=== PATIENT | female | born 1990 | race Asian ===

== ENCOUNTER → 2018-04-20 | Outpatient (CLI) | payer OTHER ==
[2018-04-22 14:12] LABS: D001-IgE D pteronyssinus <0.10 kU/L (Class 0); E001-IgE Cat Epith/Dander < 0.10 kU/L (Class 0); E005-IgE Dog Dander < 0.10 kU/L (Class 0); G002-IgE Bermuda Grass < 0.10 kU/L (Class 0); G008-IgE Kentucky Bluegrass < 0.10 kU/L (Class 0); M001-IgE Penicillium chrysogen < 0.10 kU/L (Class 0); M002 IgE Cladosporium herbaru < 0.10 kU/L (Class 0); M003 IgE Aspergillus fumigatu < 0.10 kU/L (Class 0); M006-IgE Alternaria alternata < 0.10 kU/L (Class 0); T001-IgE Maple/Box Elder < 0.10 kU/L (Class 0); T003-IgE Common Silver Birch 0.29 kU/L (Class 0/I); T006-IgE Cedar, Mountain < 0.10 kU/L (Class 0); T007-IgE Oak, White 1.34 kU/L (Class II); T008-IgE Elm, American < 0.10 kU/L (Class 0); T015-IgE Ash, White < 0.10 kU/L (Class 0); T041-IgE Hickory, White < 0.10 kU/L (Class 0); T070-IgE White Mulberry < 0.10 kU/L (Class 0); W001-IgE Ragweed, Short 1.94 kU/L (Class III); W009-IgE Plantain, English < 0.10 kU/L (Class 0); W014-IgE Pigweed, Rough < 0.10 kU/L (Class 0); W018-IgE Sheep Sorrel < 0.10 kU/L (Class 0)
== END ==
LOC: M LAB 10:33
DX: R06.7 Sneezing (principal); M75.41 Impingement syndrome of right shoulder
CPT/HCPCS: 73030

== ENCOUNTER → 2018-05-11 | Outpatient (REF) | payer OTHER | LOC: M LAB REF 13:57 | DX: Z12.4 Encounter for screening for malignant neoplasm of cervix (principal) | CPT/HCPCS: 88142 ==

== ENCOUNTER → 2020-08-02 | Outpatient (CLI) | payer OTHER ==
[2020-08-02 13:56] LABS: BASO % 0.4 % (0.0-1.0); EOS # 0.1 10^3/uL (0.0-0.5); EOS % 1.1 % (0.0-3.0); HEMOGLOBIN 13.6 g/dl (12.0-15.5); LYMPH # 2.1 10^3/uL (1.5-5.0); LYMPH % 25.8 % (24.0-44.0); MEAN CORPUSCULAR HEMOGLOBIN 30.8 pg (27.0-33.0); MEAN CORPUSCULAR HGB CONC 33.2 g/dl (32.0-36.5); MEAN CORPUSCULAR VOLUME 92.8 fl (80.0-96.0); MONO # 0.5 10^3/uL (0.0-0.8); MONO % 5.9 % (0.0-5.0); NEUTROPHILS # 5.3 10^3/uL (1.5-8.5); NEUTROPHILS % 66.4 % (36.0-66.0); PLATELET COUNT, AUTOMATED 259 10^3/uL (150-450); RED BLOOD COUNT 4.42 10^6/uL (4.00-5.40)
[2020-08-02 15:15] LABS: HEPATITIS C VIRUS ABY INDEX 0.1 INDEX (<0.8); HIV 1&2 SCREEN CENTAUR NEGATIVE (NEGATIVE)
== END ==
LOC: M PLALAB 10:52
PROVIDERS: ATTEND Obstetrics & Gynecology
DX: Z34.01 Encounter for supervision of normal first pregnancy, first trimester (principal); Z3A.00 Weeks of gestation of pregnancy not specified

== ENCOUNTER → 2020-09-12 | Outpatient (CLI) | payer OTHER | LOC: M PLALAB 11:36 | PROVIDERS: ATTEND Advanced Practice Midwife | DX: Z34.82 Encounter for supervision of other normal pregnancy, second trimester (principal) ==

== ENCOUNTER → 2020-11-22 | Outpatient (REF) | payer OTHER ==
[2020-11-22 13:55] LABS: HEMATOCRIT 33.3 % (36.0-47.0); HEMOGLOBIN 10.9 g/dl (12.0-15.5); MEAN CORPUSCULAR HEMOGLOBIN 30.6 pg (27.0-33.0); MEAN CORPUSCULAR HGB CONC 32.7 g/dl (32.0-36.5); MEAN CORPUSCULAR VOLUME 93.5 fl (80.0-96.0); PLATELET COUNT, AUTOMATED 226 10^3/uL (150-450); RED BLOOD COUNT 3.56 10^6/uL (4.00-5.40); WHITE BLOOD COUNT 8.5 10^3/uL (4.0-10.0)
== END ==
LOC: M PLALAB 10:37
PROVIDERS: ATTEND Obstetrics & Gynecology
DX: Z34.02 Encounter for supervision of normal first pregnancy, second trimester (principal)

== ENCOUNTER → 2020-11-29 | Outpatient (CLI) | payer OTHER | LOC: M LAB 08:07 | PROVIDERS: ATTEND Obstetrics & Gynecology | DX: O28.5 Abnormal chromosomal and genetic finding on antenatal screening of mother (principal); Z3A.00 Weeks of gestation of pregnancy not specified ==

== ENCOUNTER → 2020-12-06 | Outpatient (REF) | payer OTHER ==
[2020-12-07 09:58] LABS: APPEARANCE, URINE CLEAR (CLEAR); BACTERIA, URINE AUTO NEGATIVE (NEGATIVE); BILIRUBIN, URINE AUTO NEGATIVE (NEGATIVE); BLOOD, URINE BLOOD NEGATIVE (NEGATIVE); COLOR, URINE STRAW (YELLOW); GLUCOSE, URINE (UA) AUTO NEGATIVE (NEGATIVE); KETONE, URINE AUTO NEGATIVE (NEGATIVE); LEUKOCYTE ESTERASE, URINE AUTO NEGATIVE (NEGATIVE); NITRITE, URINE AUTO NEGATIVE (NEGATIVE); PROTEIN, URINE AUTO NEGATIVE (NEGATIVE); RBC, URINE AUTO 0 /HPF (0-3); SPECIFIC GRAVITY URINE AUTO 1.008 (1.002-1.035); SQUAMOUS EPITHELIAL CELL UR AU 0 /HPF (0-6); UROBILINOGEN, URINE AUTO 0.2 mg/dL (0.0-2.0); WBC, URINE AUTO 1 /HPF (0-3)
== END ==
LOC: M SFHCWAGY 09:34
PROVIDERS: ATTEND Advanced Practice Midwife
DX: O26.899 Other specified pregnancy related conditions, unspecified trimester (principal)

== ENCOUNTER → 2020-12-27 | Outpatient (CLI) | payer OTHER ==
--- NOTE | 2020-12-27 13:08 | REP ---
INDICATION: GROWTH. COMPARISON: None. TECHNIQUE: Transabdominal obstetric sonography. FINDINGS: Scanning through the gravid uterus demonstrates a viable single intrauterine gestation in cephalic lie. motion is observed and heart rate is recorded at 135 beats per minute. A anterior placenta is seen, grade 2, without evidence of placenta previa. Closed cervical length is measured at 3.4 cm transabdominally. No extrauterine abnormality is observed. Amniotic fluid is subjectively normal. JOSE MARIA is normal at 15.8 cm.. anatomic survey is not performed with this exam.. Biometry chart: BPD 7.8 cm 31 weeks 1 day Head circumference 27.6 cm, 30 weeks 1 day Abdominal circumference 25.9 cm, 30 weeks 0 days Femur length 5.9 cm, 30 weeks 5 days Humeral length 5.1 cm, 30 weeks 0 days HC AC ratio normal 1.07 Cephalic index normal 0.80 Estimated weight 1559 g, 3 lb 6 oz, 35th percentile for 30 weeks 3 days IMPRESSION: Viable single intrauterine gestation at 30 weeks 3 days by today's composite sonographic criteria. LOKESH by today's sonography 04 Mar 2021. No complication identified. Expected gestational age estimate for from previous LOKESH is also 30 weeks 3 days, known LOKESH March 04, 2021. <Electronically signed by Ananda Rich > 12/27/20 [id number]
== END ==
LOC: M WHC 09:51
PROVIDERS: ATTEND Obstetrics & Gynecology
DX: O24.419 Gestational diabetes mellitus in pregnancy, unspecified control (principal); Z3A.30 30 weeks gestation of pregnancy

== ENCOUNTER → 2021-01-08 | Outpatient (CLI) | payer OTHER | LOC: M WHC 15:55 | PROVIDERS: ATTEND Obstetrics & Gynecology | DX: Z53.29 Procedure and treatment not carried out because of patient's decision for other reasons (principal); O24.415 Gestational diabetes mellitus in pregnancy, controlled by oral hypoglycemic drugs ==

== ENCOUNTER → 2021-01-23 | Outpatient (CLI) | payer OTHER ==
--- NOTE | 2021-01-23 17:55 | REP ---
INDICATION: GROWTH. COMPARISON: 12/27/2020. TECHNIQUE: Real-time sonographic evaluation of the gravid uterus performed. FINDINGS: Estimated gestational age is34 weeks 2 days, EDC 03/04/2021. Today's measurements indicate appropriate growth. Presentation: Cephalic Placenta anterior, grade 2, without evidence of placenta previa. heart rate is recorded at 139 beats per minute. Amniotic fluid is subjectively normal. JOSE MARIA 12.2, normal range 8.0-24.8 Closed cervical length is measured at 3.1 cm. Biometry chart: BPD: 85 mm, 34 weeks 1 days, 48th percentile. HC: 301 mm, 33 weeks 3 days, 36th percentile AC: 291 mm, 33 weeks 1 days, 32nd percentile Femur length: 68 mm, 34 weeks 5 days, 56th percentile HC to AC ratio: 1.03, normal range 0.94-1.13. Estimated weight: 2253g, 28th percentile. IMPRESSION: Viable single intrauterine gestation as above. <Electronically signed by Jayro Lara > 01/23/21 [id number]
== END ==
LOC: M WHC 15:17
PROVIDERS: ATTEND Obstetrics & Gynecology
DX: O24.415 Gestational diabetes mellitus in pregnancy, controlled by oral hypoglycemic drugs (principal)

== ENCOUNTER → 2021-02-01 | Outpatient (REF) | payer OTHER | LOC: M SFHCWAGY 09:45 | PROVIDERS: ATTEND Advanced Practice Midwife | DX: Z36.89 Encounter for other specified antenatal screening (principal); Z3A.35 35 weeks gestation of pregnancy ==

== ENCOUNTER → 2021-02-05 | Outpatient (CLI) | payer OTHER ==
--- NOTE | 2021-02-06 10:36 | REP ---
INDICATION: GESTATIONAL DIABETES/GROWTH COMPARISON: 01/23/2021 TECHNIQUE: Transabdominal obstetrical ultrasound with color Doppler evaluation. FINDINGS: Examination demonstrates a single live intrauterine in cephalic presentation. motion is identified by technologist. Placenta is noted anterior and grade 2 without evidence for placenta previa or abruption. Amniotic fluid volume is normal. Cervix appears closed.. Gestational age by LMP and 1st U/S 36 weeks 1 day with LOKESH 03/04/2021. Gestational age by current measurements 34 weeks 5 days with LOKESH 03/14/2021. FHR equals 160 beats per minute. BPD: 8.8 cm at 35 weeks 4 days HC: 31.6 cm at 35 weeks 3 days AC: 29.0 cm at 33 weeks 0 days FL: 6.8 cm at 35 weeks 0 days HL: 5.9 cm at 34 weeks 3 days HC/AC: 1.09 Estimated weight 2348 grams (less than 3rdpercentile based on age by 1st ultrasound at 36 weeks 1 day). JOSE MARIA: 14.9 cm (7.7-24.8) IMPRESSION: Single live advanced gestation in cephalic presentation demonstrating less than expected interval growth. Correlation is recommended. No gross abnormalities are identified. <Electronically signed by Bernabe Zacarias > 02/06/21 [id number]
== END ==
LOC: M WHC 11:33
PROVIDERS: ATTEND Advanced Practice Midwife
DX: O24.419 Gestational diabetes mellitus in pregnancy, unspecified control (principal)

== ENCOUNTER → 2021-02-07 | Outpatient (CLI) | payer OTHER ==
[~2021-02-07] MED LIST: FERR325T3 PO; METF500T13 PO; PRENTAB9 PO
--- NOTE | 2021-02-07 10:58 | REP ---
INDICATION: IUGR, W/ CORD DOPPLER COMPARISON: 02/05/2021 TECHNIQUE: Transabdominal obstetrical ultrasound with color Doppler evaluation. FINDINGS: Examination demonstrates a single live intrauterine in cephalic presentation. motion is identified by technologist. Placenta is noted anterior/right lateral and grade 1 without evidence for placenta previa or abruption. Amniotic fluid volume is normal. Cervix appears closed.. Gestational age by LMP and 1st U/S 36 weeks 3 days with LOKESH 03/04/2021. FHR equals 144 beats per minute. JOSE MARIA: 12.9 cm Biophysical profile score: 8/8 Umbilical artery SD ratio: 2.50 (1.62-3.48) IMPRESSION: Single live advanced gestation in cephalic presentation. Biophysical profile score and amniotic fluid volume are normal. <Electronically signed by Bernabe Zacarias > 02/07/21 [id number]
== END ==
LOC: M RAD 10:13
PROVIDERS: ATTEND Advanced Practice Midwife
DX: O36.5930 Maternal care for other known or suspected poor fetal growth, third trimester, not applicable or unspecified (principal); Z3A.36 36 weeks gestation of pregnancy

== ENCOUNTER 2021-02-13 13:26 | Inpatient (IN) | payer OTHER ==
[~2021-02-13] VITALS: Ht 149.9 cm; Wt 68.8 kg
[2021-02-13] VITALS (9 sets, daily range): BP systolic 115–134; BP diastolic 62–84
--- NOTE | 2021-02-13 15:11 | HPEPDOC ---
Obstetrical History & Physical General Date of Admission Feb 13, 2021 at 13:26 History of Present Illness 30 yo at 37 2/7 weeks by LMP c/w 9 week ultrasound (EDC=03/04/2021) presents for induction due to severe IUGR. She does not feel any contractions. Good movement. Information Provided By: Patient Care Care: Good Care Dating Final EDC: March 04, 2021 Final EDC by: LMP, 1st trimester (US) Antepartum Course Diagnos(e)s 1. gestational diabetes on Metformin 2. NIPT testing with low fraction of cells, possible triploidy, no amniocentesis done. normal anatomy ultrasound Past Medical History Past Obstetrical History : Past Obstetrical History: Primgravida Past Medical History Medical History med hx: acne surgicall hx: none Family History Significant Family History: No pertinent family hx Social History Marital Status: Family situation: Spouse/partner home Psychosocial History: No pertinent psych hx * Smoker: non-smoker Physical Examination Physical Examination GENERAL: Alert and oriented times three. BREAST: . ABDOMEN: Gravid and non-tender to touch. FETUS: Is vertex (VTX) by sterile vaginal examination (SVE), fetus is vertex (VTX) by Matt. HEART RATE: Regular rate and rhythm. LUNGS: Clear to auscultation (CTA). EXTREMITIES: No edema. No clonus. Deep tendon reflexes (DTRs) + . Laboratory Data 24H LABS Laboratory Tests 2 02/13/21 13:59: Serology Scanned Report Hepatitis B Testing Pertinent Laboratoy Data Blood Type: B+ Group B Streptococcus: Negative Vaginal Examination Dilation: None Effacement: 50% Station: -2 Cervical Consistency: Medium Cervical Position: Posterior Assessment Variability: Moderate Accelerations: Positive Decelerations: None Tocometer Contractions: Yes Frequency: regular Duration: less than 60 seconds Strength: palpated as mild Assessment/Plan Assessment Pt is a 30-year-old (G)1 para (P)0 at 37+2 weeks by LMP c/w 9 week ultrasound presents for induction due to severe IUGR, class A2GDM. Plan Admit and orient. Quality Assurance Qa Lab Analyst and consent. Diet: regular. Group B Streptococcus (GBS) negative. Labs and intravenous (IV) per unit protocol. Anticipate [normal spontaneous delivery ()]. C-S as appropriate. ILDEFONSO MARTIN MD Feb 13, 2021 15:11
[2021-02-13] MEDS ORDERED: METF500T13 PO (15:20)
[2021-02-13] MEDS ORDERED: FERR325T3 PO (15:20)
[2021-02-13] MEDS ORDERED: PRENTAB9 PO (15:20)
[2021-02-13 15:25] LABS: HEMATOCRIT 40.7 % (36.0-47.0); HEMOGLOBIN 13.5 g/dl (12.0-15.5); MEAN CORPUSCULAR HEMOGLOBIN 31.2 pg (27.0-33.0); MEAN CORPUSCULAR HGB CONC 33.2 g/dl (32.0-36.5); PLATELET COUNT, AUTOMATED 182 10^3/uL (150-450); RED BLOOD COUNT 4.33 10^6/uL (4.00-5.40)
[2021-02-13] MEDS: miSOPROStol 50MCG 1/2 TABLET SL SCH ×3 (15:29→20:03)
[2021-02-13] MEDS ORDERED: metFORMIN (GLUCOPHAGE) 500MG TAB PO ONE (21:00)
[2021-02-13] MEDS ORDERED: LR 1,000 ML IV ONE (21:40)
[2021-02-14] VITALS (17 sets, daily range): BP systolic 107–139; BP diastolic 55–86
[2021-02-14] MEDS ORDERED: FENTANYL 2MCG/ML ROPIVACAINE 0.2% IN 0.9% NACL 100ML IVBAG As Ordered ONE (04:50)
[2021-02-14] MEDS ORDERED: LR 1,000 ML IV SCH ×2 (05:25→09:15)
[2021-02-14] MEDS ORDERED: ePHEDrine SULFATE 25 MG/5 ML(5MG/ML) SYRINGE IV PRN (05:50)
[2021-02-14] MEDS ORDERED: FENTANYL/ROPIVACAINE/NACL BAG 100 ML EPIDURAL SCH (05:50)
[2021-02-14] MEDS ORDERED: EPIDURAL COMMENT XX SCH (05:50)
[2021-02-14] MEDS ORDERED: REFRIGERATOR IV KEYS XX PRN (05:50)
[2021-02-14] MEDS ORDERED: LACTATED RINGER'S 1000 ML IV PRN (05:50)
[2021-02-14] MEDS ORDERED: EPIDURAL/PCA KEYS XX PRN (05:50)
[2021-02-14] MEDS ORDERED: diphenhydrAMINE 50MG/ML VIAL (J1200) IV PRN (05:50)
[2021-02-14] MEDS ORDERED: NALOXONE INJ 0.4MG/1ML VIAL (J2310 PER 1MG) IV PRN ×3 (05:50→17:30)
[2021-02-14] MEDS ORDERED: ONDANSETRON 4MG/2ML VIAL IV PRN ×4 (05:50→17:30)
[2021-02-14] MEDS ORDERED: OXYTOCIN DRIP 30 UNITS in IV 1 EA IV SCH ×2 (09:15→17:15)
[2021-02-14] MEDS ORDERED: LACTATED RINGER'S 1000 ML IV STA (14:44)
[2021-02-14] MEDS ORDERED: ceFAZolin SOD 2 GM in IV 1 EA IV ONE (14:45)
[2021-02-14] MEDS ORDERED: AZITHROMYCIN INJ 500 MG, VIAL MATE ADAPTER 1 EACH in NS 250 ML IV ONE (14:45)
[2021-02-14] MEDS ORDERED: BICITRA 30ML SOLN UDC PO ONE (14:45)
[2021-02-14] MEDS ORDERED: LIDOCAINE 2% W/EPINEPHRINE 20ML VIAL **PRES FREE As Ordered ONE (15:11)
[2021-02-14] MEDS ORDERED: OXYTOCIN INJ 10 UNITS/ML VIAL (J2590) As Ordered ONE ×2 (15:16→15:17)
[2021-02-14] MEDS ORDERED: ONDANSETRON 4MG/2ML VIAL As Ordered ONE (15:46)
[2021-02-14] MEDS ORDERED: MORPHINE PRES-FREE INJ 10 MG/10 ML VIAL (J2274) As Ordered ONE (15:46)
[2021-02-14] MEDS ORDERED: KETOROLAC 60MG 2ML VIAL As Ordered ONE (15:46)
[2021-02-14] MEDS ORDERED: MEPERIDINE 50 MG/ML 1ML VIAL (J2175) As Ordered ONE (15:54)
[2021-02-14 16:31] LABS: CORD GAS ABE A -3.1; CORD GAS HCO3 A 24.6 MEQ/L; CORD GAS O2 SAT A 68.2 %; CORD GAS PCO2 A 54.6 mmHg; CORD GAS PH A 7.271 UNITS; CORD GAS PO2 A 31.6 mmHg; CORD GAS SBC A 21.2 MEQ/L; CORD GAS TCO2 A 26.2 MEQ/L
[2021-02-14 16:33] LABS: CORD GAS ABE V -5.2; CORD GAS HCO3 V 20.2 MEQ/L; CORD GAS O2 SAT V 74.1 %; CORD GAS PCO2 V 39.1 mmHg; CORD GAS PH V 7.331 UNITS; CORD GAS PO2 V 33.3 mmHg; CORD GAS SBC V 19.7 MEQ/L; CORD GAS TCO2 V 21.4 MEQ/L
[2021-02-14] MEDS ORDERED: PERCOCET 5MG/325MG TAB PO PRN (16:35)
[2021-02-14] MEDS: LR 1,000 ML IV SCH ×2 (16:35→22:59)
[2021-02-14] MEDS ORDERED: RHOGAM 300 MCG (1500 IU) INJ (J2790) IM SCH (16:35)
[2021-02-14] MEDS ORDERED: ACETAMINOPHEN 500 MG TAB PO PRN (16:35)
[2021-02-14] MEDS ORDERED: MEASLES,MUMPS,RUBELLA VACCINE INJ (MMR-II) (90707) SC SCH (16:35)
[2021-02-14] MEDS ORDERED: SIMETHICONE 80MG CHEW TAB PO PRN (16:35)
--- NOTE | 2021-02-14 16:57 | ROOPDOC ---
[facility] Report Of Operation Report of Operation DATE OF PROCEDURE: 02/14/2021 PREPROCEDURE DIAGNOSES:. Nonreassuring heart rate tracing, 37+ weeks gestation, growth restriction POSTPROCEDURE DIAGNOSES: Same PROCEDURE: Primary low transverse section SURGEON: Ashish Wright DO FACOG WEED CONTROLLER: Alanna Amaro CNM (Essential role in retraction, extraction, and closure of all tissue layers) ANESTHESIA: Epidural ESTIMATED BLOOD LOSS: 500 mL. IV FLUIDS: 1100 mL LR URINE OUTPUT: 150 mL COMPLICATIONS: None. PREOPERATIVE ANTIBIOTICS: Ancef 2g IV x 1 COMPLICATIONS: none DATA: Apgars 8 and 9. Birthweight 2650 g, 5 lbs 13 oz. See [facility] for cord gases SPECIMENS: none PRIMARY INDICATION FOR : Non-reassuring heart rate tracing DESCRIPTION OF PROCEDURE: The patient was counseled on the risks, benefits, indications and alternatives of the procedure. Informed consent was obtained. She was taken to the operating room with IV running and placed on the operating table in the dorsal supine position with a leftward tilt. Regional anesthesia was found to be adequate. Sequential compression devices were placed on the lower extremities. A Rutherford catheter was placed under sterile conditions. She was prepared and draped in normal sterile fashion. A time out was performed per protocol. Regional anesthesia was again found to be adequate. A Pfannenstiel skin incision was made with the 10 blade. The 10 blade was used to dissect down to the level of the rectus sheath fascia. The rectus sheath pressure was incised midline and this was extended bilaterally with Meredith sci ssors , and manual stretch. The rectus muscle bellies were dissected off the rectus sheath fascia superiorly and inferiorly using both sharp and blunt dissection. The midline was identified. The peritoneum was identified and entered digitally. The peritoneal opening was extended with manual stretch. The Mobius retractor was placed. The vesicouterine peritoneum was dissected wi th Metzenbaum scissors to create the bladder flap. A low transverse uterine incision was made with the 10 blade. This was extended with manual stretch. The amniotic sac was punctured, and clear fluid was noted. The baby delivered through the hysterotomy without difficulty. The cord was doubly clamped and cut, and the baby was handed off to awaiting care. data shown above. Cord gases were obtained. The placenta was removed manually. The intrauterine cavity was cleared of all clot and debris. The hysterotomy was closed with 0 Vicryl in running locked fashion. This was reinforced with a second imbricating layer using 0 Monocryl in running fashion. Excellent hemostasis of the hysterotomy was noted. The pelvis was irrigated and the fluid suctioned. The Mobius retractor was removed. The peritoneum was closed with 3-0 Vicryl running fashion. The rectus muscle bellies were reapproximated with interrupted stitches using 3-0 Vicryl. The rectus muscles bellies were hemostatic. The rectus sheath fascia was closed with 0 Vicryl running fashion. The subcutaneous layer was irrigated and the fluid suctioned. Small bleeding vessels were cauterized with Bovie. Excellent hemostasis was noted. The subcutaneous layer was reapproximated with 3-0 Vicryl running fashion. Skin was closed with 3-0 Monocryl in subcuticular fashion. An Optifoam bandage was placed over the closed incision. Sponge, needle and instrument counts were correct per protocol throughout the procedure. The patient tolerated the entire procedure very well. She was transferred to the PACU in stable condition. DO MORIS Lechuga JONATHAN R. DO Feb 14, 2021 16:57
[2021-02-14] MEDS ORDERED: IBUP80TA PO (17:02)
[2021-02-14] MEDS ORDERED: DOK1CAP7 PO (17:02)
[2021-02-14] MEDS ORDERED: PERCOCET PO (17:02)
[2021-02-14] MEDS ORDERED: OXYTOCIN 30 UNITS IN 0.9% NaCl 500ML IV BAG (J2590) As Ordered ONE (17:22)
[2021-02-14] MEDS ORDERED: HYDROMORPHONE HCL 0.5 MG/ 0.5 ML SYRINGE (J1170 PER 1) IV PRN (17:30)
[2021-02-14] MEDS ORDERED: METOCLOPRAMIDE INJ 10MG/2ML VIAL (J2765 PER 1) IV PRN (17:30)
[2021-02-14] MEDS ORDERED: oxyCODONE 5MG TAB PO PRN (17:30)
[2021-02-14] MEDS ORDERED: fentaNYL 100 MCG/2 ML INJECTION (J3010) IV PRN (17:30)
[2021-02-14] MEDS ORDERED: NALBUPHINE HCL 10 MG/ML AMP (J2300) IV PRN (17:30)
[2021-02-14] MEDS: DOCUSATE SODIUM 100MG CAPSULE PO SCH (21:37)
[2021-02-14] MEDS: PIPERACILLIN/TAZOBACTAM SOD 3.375 GM in D5W MINI-BAG PLUS 50 ML IV SCH (21:38)
[2021-02-14] MEDS: diphenhydrAMINE 50MG/ML VIAL (J1200) IV PRN (21:38)
[2021-02-14] MEDS: KETOROLAC 30 MG/ML 1ML VIAL IV SCH (22:49)
[2021-02-15 02:00] VITALS: BP 126/76
[2021-02-15] MEDS: PIPERACILLIN/TAZOBACTAM SOD 3.375 GM in D5W MINI-BAG PLUS 50 ML IV SCH ×3 (03:36→15:41)
[2021-02-15] MEDS: diphenhydrAMINE 50MG/ML VIAL (J1200) IV PRN (03:37)
[2021-02-15] MEDS: KETOROLAC 30 MG/ML 1ML VIAL IV SCH ×2 (04:24→09:29)
[2021-02-15 06:00] VITALS: BP 102/53
[2021-02-15 08:08] LABS: HEMATOCRIT 38.5 % (36.0-47.0); HEMOGLOBIN 12.7 g/dl (12.0-15.5); MEAN CORPUSCULAR HEMOGLOBIN 31.6 pg (27.0-33.0); MEAN CORPUSCULAR VOLUME 95.8 fl (80.0-96.0); PLATELET COUNT, AUTOMATED 149 10^3/uL (150-450); RED BLOOD COUNT 4.02 10^6/uL (4.00-5.40); WHITE BLOOD COUNT 11.1 10^3/uL (4.0-10.0)
[2021-02-15] MEDS: PRENATAL VITAMINS CHEWABLE TABLET PO SCH (09:29)
[2021-02-15] MEDS: DOCUSATE SODIUM 100MG CAPSULE PO SCH ×2 (09:29→21:26)
[2021-02-15 10:00] VITALS: BP 121/69
[2021-02-15 18:00] VITALS: BP 130/80
[2021-02-15] MEDS: IBUPROFEN 800 MG TAB PO SCH (18:16)
[2021-02-15] MEDS: PERCOCET 5MG/325MG TAB PO PRN ×2 (18:57→22:44)
[2021-02-15 22:00] VITALS: BP 116/58
[2021-02-16 02:00] VITALS: BP 123/69
[2021-02-16] MEDS: IBUPROFEN 800 MG TAB PO SCH ×3 (02:13→19:11)
[2021-02-16 06:00] VITALS: BP 117/73
--- NOTE | 2021-02-16 08:14 | IPNPDOC ---
Progress Note Date of Service: Feb 16, 2021 Day#: 2 Progress Note POD 2 SUBJECT: Brody is a 30yo s/p uncomplicated PLTCS at 37w2d on 02/14 for NRFHT that developed during IOL for severe IUGR in the setting of A2GDM, doing well POD/ day # 2. Only complaint is that she is sweating profusely. She denies fevers/chills/myalgias. Her labor course was complicated by chorioamnionitis for which she received IV abx. She has been ambulating, voiding spontaneously without issue and tolerating regular diet though appetite was decreased last night. Breast feeding/bottle feeding without issue- baby in NICU for chorio. No CP/SOB. OBJECTIVE: VITAL SIGNS: Within normal limits, afebrile. Alert and oriented times three. Abdomen: Fundus firm at U-2. Soft, appropriately tender to palpation with no rebound/guarding. Pfannenstiel incision covered by dry/clean dressing. Extremities: no pain with palpation of calves Labs: pre-op: WBC 7, H/H 13.5/40.7 post-op: WBC 11, H/H 12.7/38.5 ASSESSMENT: Brody is a 30yo s/p uncomplicated PLTCS at 37w2d on 02/14 for NRFHT that developed during IOL for severe IUGR in the setting of A2GDM, doing well POD/ day # 2. Labor course complicated by chorio for which baby went to NICU and patient received appropriate abx therapy. Only complaint is sweating- no myalgias/fevers/chills. Vitals within normal limits, afebrile, hemodynamically stable with no evidence of infection. PLAN: 1. Consider discharge to home later today if stable WBC count (repeat CBC this am). 2. Percocet and Motrin for pain. 3. Encourage breast feeding and ambulation to NICU. 4. Regular diet Rissa Pierre MD VS, I&O, 24H, Fishbone Vital Signs/I&O Vital Signs Date Time Temp Pulse Resp B/P (MAP) Pulse Ox O2 Delivery O2 Flow Rate FiO2 02/16/21 06:00 97.0 73 18 117/73 (88) 97 Room Air I&O- Last 24 Hours up to 6 AM 02/16/21 06:00 Output Total 200 ml Balance -200 ml Rissa Pierre MD Feb 16, 2021 08:14
[2021-02-16] MEDS: PRENATAL VITAMINS CHEWABLE TABLET PO SCH (08:46)
[2021-02-16] MEDS: DOCUSATE SODIUM 100MG CAPSULE PO SCH ×2 (08:46→20:12)
[2021-02-16 09:29] LABS: HEMATOCRIT 39.3 % (36.0-47.0); MEAN CORPUSCULAR HEMOGLOBIN 31.9 pg (27.0-33.0); MEAN CORPUSCULAR HGB CONC 33.1 g/dl (32.0-36.5); MEAN CORPUSCULAR VOLUME 96.6 fl (80.0-96.0); PLATELET COUNT, AUTOMATED 165 10^3/uL (150-450); RED BLOOD COUNT 4.07 10^6/uL (4.00-5.40); WHITE BLOOD COUNT 11.4 10^3/uL (4.0-10.0)
[2021-02-16 18:00] VITALS: BP 122/72
[2021-02-17] MEDS: IBUPROFEN 800 MG TAB PO SCH ×2 (01:31→09:48)
[2021-02-17 06:29] VITALS: BP 117/88
--- NOTE | 2021-02-17 07:39 | DS.PDOC ---
Discharge Summary General Date of Admission Feb 13, 2021 at 13:26 Date of Discharge february 17, 2021 Discharge Summary PROCEDURES PERFORMED DURING STAY: Primary section ADMITTING DIAGNOSES: 1. Severe IUGR for induction of labor 2. Gestational diabetes DISCHARGE DIAGNOSES: 1. Primary at term for IUGR COMPLICATIONS/CHIEF COMPLAINT: Induction. HISTORY OF PRESENT ILLNESS: 30yo G1 now P1 admitted 02/13 for induction of labor for IUGR. complicated by A2GDM. HOSPITAL COURSE: Ms Wyman reports adequate pain management on oral medications. She is breast feeding and pumping. Out of bed independently. Tolerating regular diet. Voiding and passing flatus. DISCHARGE MEDICATIONS: Please see below. ALLERGIES: Please see below. PHYSICAL EXAMINATION ON DISCHARGE: VITAL SIGNS: Please see below. GENERAL: No distress HEENT: WNL NECK: Supple CARDIOVASCULAR EXAMINATION: HRR, normotensive RESPIRATORY EXAMINATION: Clear and unlabored ABDOMINAL EXAMINATION: Fundus firm. Dressing dry intac EXTREMITIES: Equal strength and motion SKIN: Intact NEUROLOGICAL EXAMINATION: Grossly intact PSYCHIATRIC EXAMINATION: Appropriate LABORATORY DATA: Please see below. PROGNOSIS: Good ACTIVITY: As tolerated, pelvic rest DIET: As tolerated DISCHARGE PLAN: Home. today DISPOSITION: Home with family DISCHARGE INSTRUCTIONS: 1. Continue vitamins. Oral medications as prescribed. Pelvic rest. Remove dressing day 5. Call with fever, nausea/vomiting/chills, wound exudate or foul lochia. Return to office 2 wks and 6 wks DISCHARGE CONDITION: Stable TIME SPENT ON DISCHARGE: Greater than 10 minutes. Vital Signs/I&Os Vital Signs Date Time Temp Pulse Resp B/P (MAP) Pulse Ox O2 Delivery O2 Flow Rate FiO2 02/17/21 06:29 97.2 101 18 117/88 (98) 02/16/21 18:00 97 02/16/21 06:00 Room Air Laboratory Data Labs 24H Laboratory Tests 2 02/16/21 09:06: Nucleated Red Blood Cells % (auto) 0.0 CBC/BMP Laboratory Tests 02/16/21 09:06 Discharge Medications Scheduled Docusate Sodium (Dok) 100 Mg Capsule, 100 MG PO BID Ibuprofen (Ibuprofen) 800 Mg Tablet, 800 MG PO Q8H No.137/Iron/Folic Acd ( Vitamin Tablet) 1 Each Tablet, 1 TAB PO DAILY, (Reported) Scheduled PRN Oxycodone/Acetaminophen (Oxycodone-Acetaminophen 5-325) 1 Each Tablet, 1 TAB PO Q4H PRN for MILD/MODERATE PAIN (PS 1-7) Miscellaneous Medications Ferrous Sulfate (Ferrous Sulfate) 325 Mg Tablet., 325 MG PO, (Reported) Allergies Coded Allergies: No Known Allergies (Verified Allergy, Unknown, 02/13/21) Adrienne Mcconnell CNM Feb 17, 2021 07:39
[2021-02-17] MEDS: DOCUSATE SODIUM 100MG CAPSULE PO SCH (08:41)
[2021-02-17] MEDS: PRENATAL VITAMINS CHEWABLE TABLET PO SCH (08:41)
== END 2021-02-17 11:50 | disposition home or self-care (01) | DRG 540 ==
LOC: M LDI 13:26 → M OBS 02-14 18:15
PROVIDERS: ADMIT Specialist; ATTEND Specialist
PROC: 10D00Z1 Extraction of Products of Conception, Low, Open Approach (ICD-10-PCS; principal; 2021-02-14 15:30)
DX: O24.425 Gestational diabetes mellitus in childbirth, controlled by oral hypoglycemic drugs (principal); O36.5930 Maternal care for other known or suspected poor fetal growth, third trimester, not applicable or unspecified; Z37.0 Single live birth; Z3A.37 37 weeks gestation of pregnancy; O76 Abnormality in fetal heart rate and rhythm complicating labor and delivery

== ENCOUNTER → 2021-06-20 | Outpatient (REF) | payer OTHER ==
[~2021-06-20] MED LIST changes: +DOK1CAP4 PO; +IBUP80TA PO; +PERCOCET PO
== END ==
LOC: M SFHCWAGY 13:09
PROVIDERS: ATTEND Obstetrics & Gynecology
DX: Z12.4 Encounter for screening for malignant neoplasm of cervix (principal); Z01.419 Encounter for gynecological examination (general) (routine) without abnormal findings

== ENCOUNTER → 2023-04-14 | Outpatient (REF) | payer OTHER ==
[2023-04-14 17:21] LABS: HEMATOCRIT 39.5 % (36.0-47.0); HEMOGLOBIN 13.1 g/dl (12.0-15.5); MEAN CORPUSCULAR HEMOGLOBIN 30.8 pg (27.0-33.0); MEAN CORPUSCULAR HGB CONC 33.2 g/dl (32.0-36.5); MEAN CORPUSCULAR VOLUME 92.7 fl (80.0-96.0); PLATELET COUNT, AUTOMATED 233 10^3/uL (150-450); RED BLOOD COUNT 4.26 10^6/uL (4.00-5.40); WHITE BLOOD COUNT 4.5 10^3/uL (4.0-10.0)
[2023-04-14 17:59] LABS: BLOOD UREA NITROGEN 8 MG/DL (9-23); CALCIUM LEVEL 8.9 MG/DL (8.5-10.1); CARBON DIOXIDE LEVEL 24 MMOL/L (20-31); CHLORIDE LEVEL 109 MMOL/L (98-107); CREATININE FOR GFR 0.74 MG/DL (0.55-1.30); GLOMERULAR FILTRATION RATE > 60.0 (>60); GLUCOSE, FASTING 92 MG/DL (60-100); POTASSIUM SERUM 4.9 MMOL/L (3.5-5.1); SODIUM LEVEL 138 MMOL/L (136-145)
== END ==
LOC: M LAB REF 16:28
PROVIDERS: ATTEND Physician Assistant
DX: Z86.2 Personal history of diseases of the blood and blood-forming organs and certain disorders involving the immune mechanism (principal); Z86.32 Personal history of gestational diabetes

== ENCOUNTER → 2023-06-20 | Outpatient (REF) | payer OTHER | LOC: M LAB REF 12:03 | PROVIDERS: ATTEND Physician Assistant | DX: J02.9 Acute pharyngitis, unspecified (principal) ==

== ENCOUNTER → 2024-01-13 | Outpatient (REF) | payer OTHER | LOC: M LAB REF 16:44 | PROVIDERS: ATTEND Physician Assistant | DX: J02.9 Acute pharyngitis, unspecified (principal) ==

== ENCOUNTER → 2024-06-01 | Outpatient (CLI) | payer OTHER ==
[2024-06-01 10:22] LABS: HEMATOCRIT 41.3 % (36.0-47.0); HEMOGLOBIN 13.8 g/dl (12.0-15.5); MEAN CORPUSCULAR HEMOGLOBIN 30.7 pg (27.0-33.0); MEAN CORPUSCULAR HGB CONC 33.4 g/dl (32.0-36.5); MEAN CORPUSCULAR VOLUME 91.8 fl (80.0-96.0); PLATELET COUNT, AUTOMATED 244 10^3/uL (150-450); WHITE BLOOD COUNT 4.7 10^3/uL (4.0-10.0)
[2024-06-01 10:50] LABS: HEMOGLOBIN A1c 5.4 % (4.0-6.0)
[2024-06-01 10:58] LABS: IRON (FE) 107 UG/DL (50-170)
[2024-06-01 10:59] LABS: PERCENT SATURATION 31.6 % (13.2-45.0); TOTAL IRON BINDING CAPACITY 339 UG/DL (250-425)
[2024-06-01 11:00] LABS: ALBUMIN 3.9 G/DL (3.2-5.2); ALKALINE PHOSPHATASE 62 U/L (46-116); ALT/SGPT 19 U/L (7.0-40); AST/SGOT 11 U/L (<34); BILIRUBIN,TOTAL 0.5 MG/DL (0.3-1.2); BLOOD UREA NITROGEN 11 MG/DL (9-23); CALCIUM LEVEL 9.1 MG/DL (8.5-10.1); CARBON DIOXIDE LEVEL 24 MMOL/L (20-31); CHLORIDE LEVEL 107 MMOL/L (98-107); CHOLESTEROL LEVEL 188 MG/DL (<200); CHOLESTEROL RISK RATIO 3.36 (<5); CREATININE FOR GFR 0.73 MG/DL (0.55-1.30); GLOMERULAR FILTRATION RATE > 60.0 (>60); GLUCOSE, FASTING 81 MG/DL (60-100); HDL CHOLESTEROL 55.9 MG/DL (>40); LDL CHOLESTEROL 111.9 MG/DL (<100); NON-HDL-C 132.1 MG/DL; POTASSIUM SERUM 4.4 MMOL/L (3.5-5.1); SODIUM LEVEL 137 MMOL/L (136-145); TOTAL PROTEIN 7.2 G/DL (5.7-8.2); TRIGLYCERIDES LEVEL 101 MG/DL (<150)
[2024-06-01 11:03] LABS: THYROID STIMULATING HORMONE 0.598 uIU/ML (0.55-4.78); TOTAL 25(OH) VITAMIN D 19.6 NG/ML (20.0-100.0)
== END ==
LOC: M RAD 08:49
PROVIDERS: ATTEND Family Medicine
DX: D64.9 Anemia, unspecified (principal); R53.83 Other fatigue; E03.9 Hypothyroidism, unspecified

== ENCOUNTER → 2024-09-22 | Outpatient (CLI) | payer OTHER | LOC: M LAB 09:19 | PROVIDERS: ATTEND Family Medicine | DX: R53.83 Other fatigue (principal) ==

== ENCOUNTER → 2025-03-23 | Outpatient (REF) | payer OTHER ==
[2025-03-25 14:22] LABS: HPV APTIMA Not Detected (Not Detected)
== END ==
LOC: M SFHCWAGY 12:50
PROVIDERS: ATTEND Obstetrics & Gynecology
DX: Z12.4 Encounter for screening for malignant neoplasm of cervix (principal)

== ENCOUNTER → 2025-05-17 | Outpatient (REF) | payer OTHER ==
[2025-05-17 13:14] LABS: APPEARANCE, URINE HAZY (CLEAR); BACTERIA, URINE AUTO NEGATIVE (NEGATIVE); BILIRUBIN, URINE AUTO NEGATIVE (NEGATIVE); BLOOD, URINE BLOOD NEGATIVE (NEGATIVE); GLUCOSE, URINE (UA) AUTO NEGATIVE (NEGATIVE); KETONE, URINE AUTO TRACE mg/dL (NEGATIVE); LEUKOCYTE ESTERASE, URINE AUTO NEGATIVE (NEGATIVE); MUCUS, URINE SMALL (NEGATIVE); NITRITE, URINE AUTO NEGATIVE (NEGATIVE); PROTEIN, URINE AUTO 1+ mg/dL (NEGATIVE); RBC, URINE AUTO 0 /HPF (0-3); SPECIFIC GRAVITY URINE AUTO 1.025 (1.002-1.035); SQUAMOUS EPITHELIAL CELL UR AU 20 /HPF (0-6); UROBILINOGEN, URINE AUTO 0.2 mg/dL (0.0-2.0); WBC, URINE AUTO 1 /HPF (0-3)
== END ==
LOC: M LAB REF 11:47
PROVIDERS: ATTEND Physician Assistant Medical
DX: N39.0 Urinary tract infection, site not specified (principal)

== ENCOUNTER → 2025-09-07 | Outpatient (REF) | payer OTHER ==
[2025-09-07 18:14] LABS: BASO # 0.0 10^3/uL (0.0-0.2); BASO % 1.0 % (0.0-1.0); EOS # 0.1 10^3/uL (0.0-0.5); EOS % 3.1 % (0.0-3.0); LYMPH # 2.0 10^3/uL (1.5-5.0); LYMPH % 51.5 % (24.0-44.0); MONO # 0.3 10^3/uL (0.0-0.8); MONO % 8.8 % (2.0-8.0); NEUTROPHILS # 1.4 10^3/uL (1.5-8.5); NEUTROPHILS % 35.3 % (36.0-66.0); PLATELET COUNT, AUTOMATED 260 10^3/uL (150-450)
[2025-09-07 18:20] LABS: ALT/SGPT 19 U/L (7.0-40); AST/SGOT 17 U/L (<34); CALCIUM LEVEL 9.2 MG/DL (8.5-10.1); CARBON DIOXIDE LEVEL 27 MMOL/L (20-31); CHLORIDE LEVEL 105 MMOL/L (98-107); CHOLESTEROL LEVEL 186 MG/DL (<200); CHOLESTEROL RISK RATIO 3.89 (<5); CREATININE FOR GFR 0.78 MG/DL (0.55-1.30); FREE T4 1.22 NG/DL (0.89-1.76); GLOMERULAR FILTRATION RATE > 90.0 (>60); LDL CHOLESTEROL 113.0 MG/DL (<100); NON-HDL-C 138.2 MG/DL; POTASSIUM SERUM 4.5 MMOL/L (3.5-5.1); SODIUM LEVEL 139 MMOL/L (136-145); TRIGLYCERIDES LEVEL 126 MG/DL (<150)
[2025-09-07 18:21] LABS: TOTAL 25(OH) VITAMIN D 28.5 NG/ML (20.0-100.0)
[2025-09-07 18:32] LABS: ESTIMATED AVERAGE GLUCOSE 111.0 MG/DL (60-110)
== END ==
LOC: M SFHCLERA 08:47
PROVIDERS: ATTEND Student in an Organized Health Care Education/Training Program
DX: Z00.00 Encounter for general adult medical examination without abnormal findings (principal)

== ENCOUNTER → 2025-10-12 | Outpatient (REF) | payer OTHER ==
[2025-10-12 13:10] LABS: APPEARANCE, URINE CLEAR (CLEAR); BACTERIA, URINE AUTO NEGATIVE (NEGATIVE); BILIRUBIN, URINE AUTO NEGATIVE (NEGATIVE); BLOOD, URINE BLOOD NEGATIVE (NEGATIVE); GLUCOSE, URINE (UA) AUTO NEGATIVE (NEGATIVE); KETONE, URINE AUTO NEGATIVE (NEGATIVE); LEUKOCYTE ESTERASE, URINE AUTO NEGATIVE (NEGATIVE); MUCUS, URINE SMALL (NEGATIVE); NITRITE, URINE AUTO NEGATIVE (NEGATIVE); PROTEIN, URINE AUTO NEGATIVE (NEGATIVE); RBC, URINE AUTO 0 /HPF (0-3); SPECIFIC GRAVITY URINE AUTO 1.020 (1.002-1.035); SQUAMOUS EPITHELIAL CELL UR AU 4 /HPF (0-6); UROBILINOGEN, URINE AUTO 0.2 mg/dL (0.0-2.0); WBC, URINE AUTO 0 /HPF (0-3)
== END ==
LOC: M LAB REF 12:12
PROVIDERS: ATTEND Physician Assistant
DX: N39.0 Urinary tract infection, site not specified (principal); B34.9 Viral infection, unspecified